=== PATIENT | female | born 2005 | race Caucasian/White ===

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

== ENCOUNTER 2025-04-03 03:50 | Outpatient (CLI) | payer BC, SELFPAY ==
[2025-04-03 12:59] LABS: Abs Immature Grans 0.03 10^3/uL (0.0-0.06); HCT 37.7 % (36.0-46.0); HGB 12.8 g/dL (11.2-15.7); Immature Grans % 0.3 %; MCH 30.0 pg (27.0-33.0); MCHC 34.0 % (32.0-36.0); MCV 88 fL (80-95); MPV 10.6 fL (8.0-11.0); Platelet Count 231 10^3/uL (130-400); RBC 4.27 10^6/uL (3.93-5.22); RDW 12.0 % (11.7-14.6); RDW-SD 38.2 fL; WBC 9.07 10^3/uL (4.4-10.8)
[2025-04-04 10:01] LABS: Hepatitis C Ab w Rflx HCV PCR Negative (Negative)
[2025-04-04 10:18] LABS: HIV-1/2 Ag & Ab Screen Negative (Negative)
[2025-04-04 11:09] LABS: Rubella IgG Ab (UVM) Positive (See Note)
[2025-04-05 18:01] LABS: Syphilis IgG w/Reflex Nonreactive (Nonreactive)
== END 2025-04-03 03:51 | disposition home or self-care (01) ==
LOC: LBO 03:50
PROVIDERS: PCP Nurse Practitioner Family; Visit Provider Advanced Practice Midwife
DX: Z34.91 Encounter for supervision of normal pregnancy, unspecified, first trimester (principal)
CPT/HCPCS: 36415; 81220; 81222; 81329; 86787; 86803; 86850; 86900; 86901; 87340; 87389; 85025; 86762; 86780

== ENCOUNTER 2025-04-03 11:16 | Outpatient (REF) | payer BC, SELFPAY ==
[2025-04-04 11:14] LABS: Cannabinoids THC Negative (Negative); METHADONE URINE SCREEN Negative (Negative)
[2025-04-04 11:39] LABS: Fentanyl Scr w/Rfx Confirm Negative ng/mL (<1)
== END 2025-04-03 11:17 | disposition home or self-care (01) ==
LOC: LBN 11:16
PROVIDERS: PCP Nurse Practitioner Family; Visit Provider Advanced Practice Midwife
DX: Z34.91 Encounter for supervision of normal pregnancy, unspecified, first trimester (principal)
CPT/HCPCS: 80307; 80348; 87086